=== PATIENT | female | born 1970 | race Asian ===

== ENCOUNTER 2025-05-30 08:15 | Outpatient (AMB) | payer OTHER, SELFPAY ==
--- OUTSIDE RECORDS SUMMARY | 2025-05-30 08:18 | XMS_ITS | Encounter Summary ---
Author Organization [facility] Address [address] [place] [address] Care Team Providers Care Wrinkle Chaser Name Role Phone Bryanna Condon MD Primary Care Provider Encounter Details Date Type Department Care Team ([facility] st Contact Info) Description 05/09/2025 Results Follow-Up Adult Medicine - [place] [address] [place] [id number] Bryanna Condon MD [address] [place] [address] Social History Tobacco Use Types Packs/Day Years Used Date Smoking Tobacco: Never Smokeless Tobacco: Never Alcohol Use Standard Drinks/Week Comments Yes 2 (1 standard drink = 0.6 oz pur e alcohol) Housing Instability Answer Date Recorde d Are you worried that in the next 2 months you may not have stable housing? No 01/10/2025 Food Access & Nutrition Answer Date Rec orded Do you have access to a vari ety of food including fruits and vegetables? Yes 01/10/2025 Access to Healthcare Answer Date Record ed Within the last 3 months, ho w many times did you visit the emergency department for your medical care? 0 01/10/2025 Health Literacy Answer Date Recorded How often do you need to hav e someone help you when you read instructions, pamphlets, or other written material from your doctor or pharmacy? Never 01/10/2025 Caregiver: How often do you need to have someone help you when you read instructions, pamphlets, or other written material from your doctor or pharmacy? Not on file 01/10/2025 Financial Risk Answer Date Recorded How hard is it for you to pa y for the very basics like food, housing, medical care, and air conditioning / heating? Not very hard 01/10/2025 Transportation Answer Date Recorded Has the lack of transportati on kept you from meetings, work, or from getting things needed for daily living? No Has the lack of transportati on kept you from medical appointments or from getting medications? No 01/10/2025 Social Isolation Answer Date Recorded How often do you feel lonely or isolated from th ose around you? Never 01/10/2025 Food Risk Answer Date Recorded Within the past 12 months we worried whether our food would run out before we got money to buy more. Never true 01/10/2025 Within the past 12 months th e food we bought just didn't last and we didn't have money to get more. Never true 01/10/2025 Dependent Care Answer Date Recorded Do you need help finding or paying for care for your loved ones. For example, child and adolescent therapist or elderly care for an older adult? No 01/10/2025 Education Answer Date Recorded Do you think completing more education or training, like finishing a GED, going to college, or learning a trade, would be helpful for you? No 01/10/2025 Employment and Income Answer Date Recor ded During the last four weeks, have you been actively looking for work? No 01/10/2025 Living Situation Answer Date Recorded What is your living situation? Unrecognized valu e 01/10/2025 Comments Unknown Sex and Gender Information Value Date Recorded Sex Assigned at Female 12/08/2024 9:59 PM EDT Legal Sex Female 8:34 AM EST Gender Identity Female 12/08/2024 9:59 PM EDT Sexual Orientation Straight 12/08/2024 9: 59 PM EDT documented as of this encounter Plan of Treatment Upcoming Encounters Date Type Department Care Team (Late st Contact Info) Description 09/12/2025 8:30 AM EDT Office Visit Adult Medicine - [place] [address] [place] [address] Bryanna Condon MD [address] [place] [address] documented as of this encounter Visit Diagnoses Not on filedocumented in this encounter Additional Health Concerns Assessment Noted Time PHQ-9 Depression Total Score: 0 01/11/20 25 9:53 AM EDT documented as of this encounter Care Teams Wrinkle Chaser Relationship Specialty Start Date End Date Bryanna Condon MD [address] [place] [address] PCP - General Internal Medicine 10/09/21 documented as of this encounter
--- OUTSIDE RECORDS SUMMARY | 2025-05-30 08:18 | XMS_ITS | Clinical Summary ---
Author Organization [facility] [address] [place] [address] [place] [address] Phone Care Team Providers Care Jack Tamp Operator Name Role Phone Bryanna Condon MD Primary Care Provider Allergies Active Allergy Reactions Criticality Noted Date Comments Lisinopril Cough Medium 03/20/2019 Medications hydroCHLOROthiaz jo-ann (MICROZIDE) 12.5 mg capsule Take 1 capsule (12.5 mg total) by mouth 1 (one) time each day. 4 Active meclizine (ANTIVERT) 12.5 mg tablet Take 1 Tablet by mouth every 8 hours as needed for Other (vertigo). 4 Active losartan (COZAAR) 25 mg tabletIndication s:Essential (primary) hypertension,Hyp othyroidism, unspecified TAKE 1 TABLET BY MOUTH EVERY DAY 90 tablet 1 5 Active hydrOXYzine HCL (ATARAX) 10 mg tablet Take 1 tablet (10 mg total) by mouth 1 (one) time each day if needed for anxiety (insomnia) for up to 10 days. 10 tablet 5 Active levothyroxine (SYNTHROID, LEVOTHROID) 100 mcg tabletIndication s:Hypothyroidism , unspecified TAKE 1 TABLET BY MOUTH EVERY DAY 90 tablet 5 Active metFORMIN XR (GLUCOPHAGE-XR) 500 mg 24 hr tablet TAKE 2 TABLETS (1,000 MG TOTAL) BY MOUTH 1 (ONE) TIME EACH DAY. DO NOT CRUSH, CHEW, OR SPLIT. 180 tablet 5 Active cimetidine (TAGAMET) 400 mg tablet Take 1 tablet (400 mg total) by mouth at bedtime. 90 tablet 1 5 Active fexofenadine (KYARA) 180 mg tablet Take 1 tablet (180 mg total) by mouth 1 (one) time each day. 90 tablet 1 5 Active cyanocobalamin (Vitamin B-12) 500 mcg tablet Take 1 tablet (500 mcg total) by mouth 1 (one) time each day. 90 tablet 3 5 Active blood-glucose meter kit 1 Kit by Does not apply route See Admin Instructions . 05/09/20 Discontinu ed(Therapy completed) cimetidine (TAGAMET) 400 mg tablet Take 1 tablet (400 mg total) by mouth 2 (two) times a day. 05/09/20 Discontinu ed(Reorder ) fexofenadine (KYARA) 180 mg tablet Take 1 tablet (180 mg total) by mouth 1 (one) time each day. 05/09/20 Discontinu ed(Reorder ) Active Problems Problem Noted Date Diagnosed Date Type 2 diabetes mellitus wit hout complication, without long-term current use of insulin ([facility] V24, [facility] V28) 08/10/2024 Vitamin D deficiency disease 08/03/2020 Overview (05/31/2024): Resolved 11-->53 after vit D supplementation Urge incontinence 06/06/2020 Overview (05/31/2024): Referral to urology Recurrent urticaria 05/04/2019 Hyperlipidemia 03/20/2019 Obesity (BMI 30.0-34.9) 03/20/2019 Acquired hypothyroidism 03/02/2019 Essential hypertension 03/02/2019 Migraine 03/02/2019 Encounters Date Type Department Care Team Description 05/09/2025 9:10 AM EST Lab Draw Station - [address] [phone] Type 2 diabetes mellitus without complication, without long-term current use of insulin ([facility] V24, [facility] V28); Acquired hypothyroidism; Essential hypertension 05/09/2025 8:30 AM EST [facility] [address] [place] [phone] Bryanna Condon MD Type 2 diabetes mellitus without complication, without long-term current use of insulin ([facility] V24, [facility] V28) (Primary Dx); Acquired hypothyroidism; Essential hypertension; Seasonal allergies; Vegan diet 05/09/2025 Results Follow-Up Adult [facility] [address] [place] [phone] Bryanna Condon MD from Last 3 Months Immunizations Immunization Administration Dates Next Due Influenza Quadravalent, MDCK , 0.5ml, preservative free (Flucelvax) 6mo and older 06/23/2023,05/02/2019 Influenza trivalent, 0.5mL, preservative free (Fluarix; FluLaval; Fluzone) ages 6mo and older (Afluria) 3 years and older 04/07/2024 Influenza trivalent, MDCK, 0 .5mL, preservative free (Flucelvax) 6mo and older 05/09/2025 Moderna SARS-CoV-2 COVID-19, mRNA, LNP-S, preservative free 10/21/2020,09/23/2020 Pfizer SARS-CoV-2 COVID-19, mRNA, LNP-S, preservative free 05/30/2021 Tdap Tetanus diptheria acell ular pertussis (Boostrix; Adacel) 7yo and older 10/14/2018 Surgical History Surgery Date Site/Laterality Comments OTHER SURGICAL HISTORY PROCEDURE: ANESTHESIA FOR SECTION; COMMENT: x 2 Medical History Medical History Date Comments Acquired hypothyroidism 03/02/2019 DX:Acqui red hypothyroidism Essential hypertension 03/02/2019 DX:Essent ial hypertension Migraine 03/02/2019 DX:Migraine Family History Medical History Relation Name Comments Diabetes Brother 1 Hyperlipidemia Brother 1 Hypertension Brother 1 Diabetes Brother 2 Hypertension Brother 2 Diabetes Father HTN Stroke Father from covid complications. Asthma Mother and thyroid dis ease Diabetes Mother Breast cancer Neg Hx Colon cancer Neg Hx Relation Name Status Comments Brother 1 Alive Brother 2 Alive Father Mother Alive Social History Tobacco Use Types Packs/Day Years [...] for your loved ones. For example, child care coordinator or elderly care for an older adult? [...] Orientation Straight 12/08/2024 9: 59 PM EDT Obstetrics History Para Term AB IAB SAB Ectopic Multiple Livin g Live Births 2 2 2 2 Date Outcome GA Total Labor Labor/2nd/3rd Weight Sex Type Anes PTL Pooja A1 A5 Name Clin Term Term Last Filed Vital Signs Vital Sign Reading Time Taken Comments Blood Pressure 124/69 05/09/2025 8:24 AM EST Pulse 75 05/09/2025 8:24 AM EST Temperature 36.1 C (97 F) 05/09/2025 8:24 AM EST Respiratory Rate 16 05/09/2025 8:24 AM EST Oxygen Saturation - - Inhaled Oxygen Concentration - - Weight 76.8 kg (169 lb 6.4 oz) 05/09/2025 8:24 A M EST Height 166 cm (5' 5.35 ) 05/09/2025 8:24 AM EST Body Mass Index 27.89 05/09/2025 8:24 AM EST Plan of Treatment Upcoming Encounters Date Type Department Care Team (Late st Contact Info) Description 09/12/2025 8:30 AM EDT Office Visit Adult Medicine - [address] [phone] Bryanna Condon MD [address] [place] [address] Health Maintenance Due Date Last Done Comments Diabetes: Annual Foot Exam 1979 Hepatitis B Vaccines (1 of 3 - 19+ 3-dose series) 1988 Pneumococcal Vaccine: 50+ Years (1 of 2 - PCV) 1988 Zoster Vaccines (1 of 2) 2019 HIV Screening 06/07/2022 COVID-19 Vaccine ( season) 2025 05/30/2021, 10/21/2020, 09/23/2020 Diabetes: Annual Retina Eye Exam 05/12/2025 05/12/2024 Diabetes: Blood Sugar Control Test (HGBA1C) 11/06/2025 05/09/2025, 01/10/2025, 04/07/2024, Additional history exists Diabetes: Annual Urine Albumin-Creatinine Ratio (uACR) 01/10/2026 01/10/2025, 11/26/2023 Social Influencers of Health Screening 01/10/2026 01/10/2025 Diabetes: Annual GFR (Glomerular Filtration Rate) 05/09/2026 05/09/2025, 01/10/2025, 04/07/2024, Additional history exists Hypertension/CHF/CAD Annual BMP Blood Test 05/09/2026 05/09/2025, 01/10/2025, 04/07/2024, Additional history exists Breast Cancer Screening 09/10/2026 09/11/19, 08/08/2023, 08/08/2023, Additional history exists DTaP,Tdap,and Td Vaccines (2 - Td or Tdap) 10/14/2028 10/14/2018 Cervical Cancer Screening: HPV 04/07/2029 04/07/2024 Cholesterol Screening (Lipid Panel) 01/10/2030 01/10/2025, 11/26/2023, 12/19/2021 Colorectal Cancer Screening: Colonoscopy 11/21/2030 11/21/2020 Osteoporosis Screening (Bone Density Screening) 08/10/2034 08/10/2024 RSV Immunization Adult Patients (1 - 1-dose 75+ series) 2044 Hepatitis C Screening Completed 02/18/2023 Depression Screening Completed 01/10/2025, 12/28/19 24 Influenza Vaccine Completed 05/09/2025, , 06/23/2023, Additional history exists HIB Vaccines Aged Out No longer eligi ble based on patient's age to complete this topic HPV Vaccines Aged Out No longer eligi ble based on patient's age to complete this topic Hepatitis A Vaccines Aged Out No long er eligible based on patient's age to complete this topic IPV Vaccines Aged Out No longer eligi ble based on patient's age to complete this topic MMR Vaccines Aged Out No longer eligi ble based on patient's age to complete this topic Meningococcal ACWY Vaccine Aged Out N o longer eligible based on patient's age to complete this topic Meningococcal B Vaccine Aged Out No l onger eligible based on patient's age to complete this topic RSV Immunization Patients Under 20 months Aged Out No longer eligible based on patient's age to complete this topic Varicella Vaccines Aged Out No longer eligible based on patient's age to complete this topic Procedures Procedure Name Priority Date/Time Associated Diagnosis Comments COMPREHENSIVE METABOLIC PANEL Routine 05/09/2025 9:10 AM EST Type 2 diabetes mellitus without complication, without long-term current use of insulin (CMS/HCC V24, CMS/HCC V28) Acquired hypothyroidism Essential hypertension HEMOGLOBIN A1C Routine 05/09/2025 9:10 AM EST Type 2 diabetes mellitus without complication, without long-term current use of insulin (CMS/HCC V24, CMS/HCC V28) Acquired hypothyroidism Essential hypertension MICROALBUMIN CREATININE URINE RATIO Routine 01/10/2025 12:46 PM EDT Type 2 diabetes mellitus without complication, without long-term current use of insulin (CMS/HCC V24, CMS/HCC V28) Essential hypertension Acquired hypothyroidism Vestibular neuronitis, unspecified laterality Heartburn LIPID PANEL WITH REFLEX TO DIRECT LDL Routine 01/10/2025 12:46 PM EDT Type 2 diabetes mellitus without complication, without long-term current use of insulin (CMS/HCC V24, CMS/HCC V28) Essential hypertension Acquired hypothyroidism Vestibular neuronitis, unspecified laterality Heartburn MG MAMMO DIGITAL SCREENING W KD BILAT Routine 09/10/2024 8:26 AM EDT Encounter for screening mammogram for breast cancer BD BONE DENSITY DXA AXIAL SKELETON Routine 08/10/2024 11:01 AM EST Encounter for general adult medical examination without abnormal findings HM HPV Routine 04/07/2024 DEPRESSION SCREENING Routine 12/28/2023 HEPATITIS C SCREENING Routine 02/18/2023 HM COLONOSCOPY Routine 11/21/2020 from Last 3 Months or Most Recently Relevant to Health Maintenance Results * (ABNORMAL) Hemoglobin A1c (05/09/2025 9:10 AM EST) Pathologist [facility] [place] Hemoglobin A1C 6.9(H) <6.5 % LAB CHEMISTRY METHOD 05/09/2025 7:27 PM EST [facility] Mean Bld Glu Estim. 151 mg/dL LAB CHEMISTRY METHOD 05/09/2025 7:27 PM [facility] Blood Venous blood specimen / Unknown Venipuncture / Unknown 05/09/2025 9:10 AM EST 05/09/2025 9:10 AM EST us Bryanna Condon MD LAB BLOOD ORDERABLES F inal Result [facility] [address] [place] [address], [place] [phone] * (ABNORMAL) Comprehensive metabolic panel (05/09/2025 9:10 AM EST) [facility] Sodium 139 133 - 145 mmol/L LAB CHEMISTRY METHOD 05/09/2025 12:38 PM [facility] Potassium 4.0 3.5 - 5.5 mmol/L LAB CHEMISTRY METHOD 05/09/2025 12:38 PM [facility] Chloride 103 96 - 110 mmol/L LAB CHEMISTRY METHOD 05/09/2025 12:38 PM [facility] CO2 29 21 - 32 mmol/L LAB CHEMISTRY METHOD 05/09/2025 12:38 PM [facility] Anion Gap 7 3 - 11 LAB CHEMISTRY METHOD 05/09/2025 12:38 PM [facility] Glucose 132(H) 70 - 100 mg/dL LAB CHEMISTRY METHOD 05/09/2025 12:38 PM [facility] BUN 8 5 - 25 mg/dL LAB CHEMISTRY METHOD 05/09/2025 12:38 PM [facility] Creatinine 0.67 0.50 - 1.10 mg/dL LAB CHEMISTRY METHOD 05/09/2025 12:38 PM [facility] eGFR 103 >=60 mL/min/1. 73m2 LAB CHEMISTRY METHOD 05/09/2025 12:38 PM [facility] Comment:Calculation based on the Chronic Kidney Disease Epidemiology Collaboration (CKD-EPI) equation refit without adjustment for race. BUN/Creatinine Ratio 11.9 LAB CHEMISTRY METHOD 05/09/2025 12:38 PM [facility] Calcium 9.1 8.5 - 10.5 mg/dL LAB CHEMISTRY METHOD 05/09/2025 12:38 PM [facility] AST (SGOT) 25 10 - 42 unit/L LAB CHEMISTRY METHOD 05/09/2025 12:38 PM [facility] ALT (SGPT) 37 10 - 60 unit/L LAB CHEMISTRY METHOD 05/09/2025 12:38 PM [facility] Alkaline Phosphatase 130(H) 42 - 121 unit/L LAB CHEMISTRY METHOD 05/09/2025 12:38 PM [facility] Total Protein 7.7 6.0 - 8.0 g/dL LAB CHEMISTRY METHOD 05/09/2025 12:38 PM [facility] Albumin 3.7 3.2 - 5.0 g/dL LAB CHEMISTRY METHOD 05/09/2025 12:38 PM [facility] Total Bilirubin 0.3 0.0 - 1.4 mg/dL LAB CHEMISTRY METHOD 05/09/2025 12:38 PM [facility] Blood Venous blood specimen / Unknown Venipuncture / Unknown 05/09/2025 9:10 AM EST 05/09/2025 9:10 AM EST us Bryanna Condon MD LAB BLOOD ORDERABLES F inal Result [facility] [address] [place] [address], [place] [phone] * Lipid panel with reflex to direct LDL (01/10/2025 12:46 PM EDT) Cholesterol 174 0 - 200 mg/dL LAB CHEMISTRY METHOD 01/10/2025 3:59 PM EDT [facility] Triglycerides 102 0 - 150 mg/dL LAB CHEMISTRY METHOD 01/10/2025 3:59 PM EDT [facility] HDL 56 >=40 mg/dL LAB CHEMISTRY METHOD 01/10/2025 3:59 PM EDT [facility] LDL Calculated 98 0 - 100 mg/dL LAB CHEMISTRY METHOD 01/10/2025 3:59 PM EDT [facility] VLDL Cholesterol Noah 20.4 mg/dL LAB CHEMISTRY METHOD 01/10/2025 3:59 PM EDT [facility] Non HDL Chol. (LDL+VLDL) 118 <145 mg/dL LAB CHEMISTRY METHOD 01/10/2025 3:59 PM EDT [facility] Chol/HDL Ratio 3.1 0.0 - 4.4 LAB CHEMISTRY METHOD 01/10/2025 3:59 PM EDT [facility] Blood Venous blood specimen / Unknown Venipuncture / Unknown 01/10/2025 12:46 PM EDT 01/10/2025 12:46 PM EDT us Alonzo ARRIAGA LAB BLOOD ORDERABLES Final Re sult [facility] [address] [place] [address], [place] [phone] * (ABNORMAL) Microalbumin creatinine urine ratio (01/10/2025 12:46 PM EDT) Creatinine, Urine 20.0 mg/dL LAB CHEMISTRY METHOD 01/10/2025 4:09 PM EDT [facility] Microalb, Ur 5.9 0.0 - 29.0 mg/L LAB CHEMISTRY METHOD 01/10/2025 4:09 PM EDT [facility] Microalb/Creat Ratio 30(H) <30 mg/g creat LAB CHEMISTRY METHOD 01/10/2025 4:09 PM EDT [facility] Urine Urine specimen obtained by clean catch procedure / Unknown Non-blood Collection / Unknown 01/10/2025 12:46 PM EDT 01/10/2025 12:46 PM EDT us Alonzo ARRIAGA LAB URINE ORDERABLES Final Re sult [facility] [address] [place] [address], [place] [phone] * MG Mammo Digital Screening w Kd bilat (09/10/2024 8:26 AM EDT) Anatomical Region Laterality Modality Breast Bilateral Mammography 09/12/2024 1:05 PM EDT Impressions 09/12/2024 1:25 PM EDT No mammographic evidence of malignancy. BREAST DENSITY: B - There are scattered areas of fibroglandular density. BI-RADS CATEGORY: 1 - NEGATIVE RECOMMENDATION: Screening bilateral mammogram is recommended in 1 year. MAMMO LOCATION: [facility], [address] [place] [address], [phone], . -------- FINAL REPORT -------- Dictated By: Taya Martinez Dictated Date: 09/12/2024 13:05 ET Assigned Physician: Taay Martinez Reviewed and Electronically Signed By: Taya Martinez Signed Date: 09/12/2024 13:25 ET Workstation ID: [id number] Transcribed By: Self Edit Transcribed Date: 09/12/2024 13:05 ET Narrative 09/12/2024 1:25 PM EDT EXAM: Screening Mammogram CLINICAL: 54 years old, Female, routine annual exam. COMPARISON: 08/08/2023 and 07/22/2022 TECHNIQUE: Bilateral MLO and CC views were obtained digitally with 3-D mammogram (digital breast tomosynthesis). Computer-aided detection was utilized in evaluation of this exam (CAD). FINDINGS: No new suspicious mass, architectural distortion, or suspicious calcifications. Procedure Note Taya Martinez MD - 09/12/2024 EXAM: Screening Mammogram CLINICAL: 54 years old, Female, routine annual exam. COMPARISON: 08/08/2023 and 07/22/2022 TECHNIQUE: Bilateral MLO and CC views were obtained digitally with 3-Dmammogram (digital breast tomosynthesis). Computer-aided detection wasutilized in evaluation of this exam (CAD). FINDINGS: No new suspicious mass, architectural distortion, or suspiciouscalcifications. IMPRESSION: No mammographic evidence of malignancy. BREAST DENSITY: B - There are scattered areas of fibroglandular density. BI-RADS CATEGORY: 1 - NEGATIVE RECOMMENDATION: Screening bilateral mammogram is recommended in 1 year. MAMMO LOCATION: [facility], [address] [place] [address], [address], . -------- FINAL REPORT -------- Dictated By: Taya Martinez Dictated Date: 09/12/2024 13:05 ET Assigned Physician: Taya Martinez Reviewed and Electronically Signed By: Taya Martinez Signed Date: 09/12/2024 13:25 ET Workstation ID: [id number] Transcribed By: Self Edit Transcribed Date: 09/12/2024 13:05 ET us Bryanna Condon MD IMG BI PROCEDURES Danna l Result * BD Bone Density DXA Axial Skeleton (08/10/2024 11:01 AM EST) Anatomical Region Laterality Modality Wrist, Hip, L-spine Bone Densito metry 08/10/2024 12:3 0 PM EST Impressions 08/10/2024 12:37 PM EST Impression:Osteopenia by WHO criteria. This patient has a 6.5% risk of major osteoporotic fracture and a 0.5% risk of hip fracture over the next 10 years. (World Health Organization Fracture Risk Assessment) [facility] Department of Internal Medicine recommends using National Osteoporosis Foundation (NOF) guidelines in treatment decisions related to osteoporosis. NOF guidelines suggest considering treatment for postmenopausal women and men aged 50 or older presenting with the following: History of hip or vertebral fracture. T-score = -2.5 (DXA) at the femoral neck, total hip, or spine, after appropriate evaluation to exclude secondary causes. Low bone mass (T-score between -1.0 and -2.5 at the femoral neck or spine) AND a 10-year probability of a hip fracture = 3% OR a 10-year probability of a major osteoporosis-related fracture = 20% based on the [place]-adapted WHO algorithm Please note that all treatment decisions require clinical judgment and consideration of individual patient factors, including patient preferences, co-morbidities, previous drug use, risk factors not captured in the FRAX model (e.g., frailty, falls, vitamin D deficiency, increased bone turnover, interval significant decline in bone density) and possible under- or over-estimation of fracture risk by FRAX. Optional alternative screening schedule based on lewis Buckner., [facility] July 17, 2011 for patients with osteopenia (based on hip BMD T-score) is as follows: * advanced osteopenia (T scores -2.00 to -2.49), BMD testing every year * moderate osteopenia (T scores -1.50 to -1.99), BMD testing every 5 years mild osteopenia or normal BMD (T scores -1.50 and higher), BMD testing every 15 years -------- FINAL REPORT -------- Dictated By: Marita King Dictated Date: 08/10/2024 12:30 ET Assigned Physician: Marita King Reviewed and Electronically Signed By: Marita King Signed Date: 08/10/2024 12:37 ET Workstation ID: [id number] Transcribed By: Self Edit Transcribed Date: 08/10/2024 12:30 ET Narrative 08/10/2024 12:37 PM EST BONE DENSITY (DEXA) Lumbar Spine T-score is -1.2. (SD relative to 20-29 y/o adult) Z-score is -0.1. (SD relative to age matched peers) This is considered osteopenia by WHO criteria. Left Hip T-score is -1.6. Z-score is -0.5. This is considered osteopenia by WHO criteria. Comparison exam(s): Not available. Procedure Note Marita King MD - 08/10/2024 BONE DENSITY (DEXA) Lumbar Spine T-score is -1.2. (SD relative to 20-29 y/o adult) Z-score is -0.1. (SD relative to age matched peers) This is considered osteopenia by WHO criteria. Left Hip T-score is -1.6. Z-score is -0.5. This is considered osteopenia by WHO criteria. Comparison exam(s): Not available. IMPRESSION: Impression:Osteopenia by WHO criteria. This patient has a 6.5% risk ofmajor osteoporotic fracture and a 0.5% risk of hip fracture over the next10 years. (World Health Organization Fracture Risk Assessment) [facility] Department of Internal Medicine recommendsusing National Osteoporosis Foundation (NOF) guidelines in treatmentdecisions related to osteoporosis. NOF guidelines suggest consideringtreatment for postmenopausal women and men aged 50 or older presentingwith the following: History of hip or vertebral fracture. T-score = -2.5 (DXA) at the femoral neck, total hip, or spine, afterappropriate evaluation to exclude secondary causes. Low bone mass (T-score between -1.0 and -2.5 at the femoral neck or spine)AND a 10-year probability of a hip fracture = 3% OR a 10-year probabilityof a major osteoporosis-related fracture = 20% based on the [place]-adapted WHOalgorithm Please note that all treatment decisions require clinical judgment andconsideration of individual patient factors, including patientpreferences, co-morbidities, previous drug use, risk factors not capturedin the FRAX model (e.g., frailty, falls, vitamin D deficiency, increasedbone turnover, interval significant decline in bone density) and possibleunder- or over-estimation of fracture risk by FRAX. Optional alternative screening schedule based on lewis Buckner., NEJMJanuary 2011 for patients with osteopenia (based on hip BMD T-score)is as follows: * advanced osteopenia (T scores -2.00 to -2.49), BMD testing every year * moderate osteopenia (T scores -1.50 to -1.99), BMD testing every 5years mild osteopenia or normal BMD (T scores -1.50 and higher), BMD testingevery 15 years -------- FINAL REPORT -------- Dictated By: Marita King Dictated Date: 08/10/2024 12:30 ET Assigned Physician: Marita King Reviewed and Electronically Signed By: Marita King Signed Date: 08/10/2024 12:37 ET Workstation ID: [id number] Transcribed By: Self Edit Transcribed Date: 08/10/2024 12:30 ET Carrie Gan CNM IM DXA PROCEDURES Final Resu lt * Cervical Cancer Screening: HPV (04/07/2024) [facility] Cervical Cancer Screening: HPV negative, abstracted [facility] Provider HEALTH MAINTENANCE Final Result * Depression Screening (12/28/2023) [facility] Depression Screening abstracted [facility] Provider HEALTH MAINTENANCE Final Result * Hepatitis C Screening (02/18/2023) [facility] Hepatitis C Screening abstracted [facility] Provider HEALTH MAINTENANCE Final Result * Colonoscopy (11/21/2020) [facility] Colonoscopy no interpretation , abstracted Anatomical Region Laterality Modality Other [facility] Provider HEALTH MAINTENANCE Final Result from Last 3 Months or Most Recently Relevant to Health Maintenance [place] [address] Care Teams Jack Tamp Operator Relationship Specialty Start Date End Date Bryanna Condon MD [address] [place] [phone] PCP - General Internal Medicine 10/09/21
--- NOTE | 2025-05-30 08:35 | A.OFFVIS_ITS ---
Intake Visit Reasons: vertigo Allergies No Known Allergies Allergy (Verified 01/03/25 16:39) Medication List - Last Reconciled 05/30/25 by Иван Canseco MD hydrochlorothiazide 12.5 mg PO DAILY hydroxyzine HCl 10 mg PO DAILY PRN levothyroxine 100 mcg PO DAILY losartan 25 mg PO DAILY metformin ER 1,000 mg PO DAILY HPI Comments Details: This is a 55 yr old woman with remote h/o migraines with no recurrence in last year, motion sickness and recurrent vertigo episodes. She is doing much better with only 3 mild attacks lasting 1-2 days in the last 14 months. She took Meclizine 8mg single dose with relief. She originally developed sudden onset of vertigo while in [place] in March 2021. It came on suddenly with violent vertigo, nausea, vomiting, and that went on for a month and she had to delay her return. She is taking Meclizine 8 mg in an formulation. She had no hear ing symptoms of tinnitus or hearing loss. No other complaints including the vision. She had some vestibular rehabilitation and then was fine for a year till late 2021 and then she started having brief attacks lasting a few hours to a day, sometimes 2 days, but once or twice a month. No triggers have been identified. They occur randomly. No hearing loss or tinnitus. These episodes of vertigo are frequently associated with the posterior neck pain and headaches in the biparietal and occipital area. May be triggered under stressful situations. Hearing test normal. Her migraines started in school and used to last days. No recent recurrence. Mother and daughter also have migraines. [facility] Medical History (Updated 05/30/25 @ 09:05 by Иван Canseco MD) Vestibular neuronitis, bilateral Migraine Review of Systems Const Details: Sleep:? Difficulty getting to sleep?denies.? Difficulty maintaining sleep?denies? .? Urge to move legs?denies.? Teeth grinding?denies.? Shouting or Kicking during sleep?denies.? Abnormal behavior during sleep?denies.? Excessive sleep?denies.? Snoring?denies.? Daytime sleepiness?denies.? ?? General/Constitutional:? Change in appetite?denies.? Chills?denies.? Fatigue?denies.? Fever?denies .? Weight gain?denies.? Weight loss?denies.? ?? Ophthalmologic:? Blurred vision?admits.? Diminished visual acuity?denies.? ?? ENT:? Stuffiness?denies.? Decreased hearing?denies.? Dry mouth?denies.? Ear pain?denies.? Nosebleed?denies.? Ringing in the ears?denies.? Sinus pain?denies .? Sore throat?denies.? Swollen glands?denies.? ?? Endocrine:? Cold intolerance?denies.? Excessive thirst?denies.? Frequent urination? denies.? Heat intolerance?denies.? ?? Respiratory:? Shortness of breath?denies.? Chest pain?denies.? Cough?denies.? ?? Breast:? Breast lump?denies.? Nipple discharge?denies.? ?? Cardiovascular:? Chest pain at rest?denies.? Chest pain with exertion?denies.? Cl audication?denies.? Dizziness?denies.? Fluid accumulation in the legs?denies.? Irregular heartbeat?denies.? Palpitations?denies.? ?? Gastrointestinal:? Abdominal pain?denies.? Constipation?denies.? Diarrhea?denies.? Difficulty swallowing?denies.? Heartburn?denies.? Nausea?denies.? Rectal bleeding?denies.? ?? Hematology:? Easy bruising?denies.? Prolonged bleeding?denies.? ?? Genitourinary:? Frequent urination?denies.? Urgency?admits.? Incontinence?denies.? Erectile Dysfunction?denies.? ?? Musculoskeletal:? Neck pain?admits.? Back pain?admits.? Muscle aches?denies.? Painful joints?admits.? Sciatica?denies.? Weakness?denies.? ?? Podiatric:? Difficulty walking?denies.? Foot numbness?denies.? ?? Neurologic:? Difficulty swallowing?denies.? Balance difficulty?denies.? Coordination? normal.? Difficulty speaking?denies.? Dizziness?admits.? Fainting?denies.? Gait abnormality?denies.? Headache?admits.? Loss of strength?denies.? Loss of use of extremity?denies.? Low back pain?denies.? Memory loss?denies.? Seizures?denies.? Tics?denies.? Tingling/Numbness?denies.? Transient loss of vision?denies.? Tremor?denies.? ?? Psychiatric:? Anxiety?denies.? Auditory/visual hallucinations?denies.? Delusions?denies .? Depressed mood?denies.? Stressors?denies.? Substance abuse?denies.? Suicidal thoughts?denies.? ?? Physical Exam Neuro Other: Neurological: ? Abnormal neurological findings:??none.? Mental Status:?alert and oriented X 3,?Normal attention, orientation, memory and affect.? Cranial Nerves:?Pupils are equal, round and reactive to light. Fundoscopy shows normal disc bilaterally. External occular muscles are intact. Visual ross are full, no ptosis. Face is symmetrical, no facial weakness or droop. Facial sensations are normal. Tongue protrudes in midline. Palate elevates symmetrically. Shoulder shrugging is normal..? Motor Examination:?Normal muscle tone, bulk and strength,?No atrophy or fasciculations,?No drift of the extended upper extremities,?Deep tendon reflexes are 2+?,?Plantars are flexor?.? Straight Leg Raising:?90 degrees.? Sensory Exam:?Normal light touch, temperature, pinprick, vibration and joint-position sensations?,?Rhomberg sign is absent.? Coordination:?no ataxia,?no titubation,?[id number], [id number] test and rapid alternating movements were normal.? Gait Exam:?Within normal limits.? Cerebellar Signs:?[id number] and [id number] is normal,?no dysdia dochokinesia?.? Extrapyramidal System:?No tremor, rigidity with normal facial expressions,?No bradykinesia, no bradyphrenia. Normal arm swing and posture. No propulsion or retropulsion.? Speech:?Normal,?no dysphasia or dysarthria..? Mini Mental Status Exam: ? Level of Consciousness:?Alert.? Orientation:?Knows correct year, month, date, day and season,?Knows correct city, county and state. Knows correct location and floor.? Registration:?Able to register 3 objects.? Attention:?Serial 7's performed accurately.? Recall:?Able to recall 3 out of 3 objects.? Language:?Normal spontaneous speech, fluency, repetition,naming, comprehension, reading and writing.? Total Score:?30/30.? General Examination: ? GENERAL APPEARANCE:?normal,?in no acute distress.? HEAD:?normocephalic,?atraumatic.? EYES:?sclera non-icteric,?conjunctiva clear.? EARS:?auditory canal clear,?tympanic membrane intact, clear.? NOSE:?no lesions.? ORAL CAVITY:?gums normal,?mucosa moist,?no lesions.? THROAT:?clear.? NECK/THYROID:?no cervical lymphadenopathy,?thyroid normal,?neck supple, full range of motion,?no carotid bruit.? SKIN:?no rashes,?no significant birthmarks.? HEART:?S1, S2 normal,?no murmurs.? LUNGS:?clear anteriorly and posteriorly.? CHEST:?no gross rib deformity,?clear to auscultation.? BACK:?normal exam of spine.? EXTREMITIES:?no edema.? PERIPHERAL PULSES:?normal.? PSYCH:?alert, oriented,?cognitive function intact,?cooperative with exam.? Assessment & Plan Assessment & Plan (1) Vestibular neuronitis, bilateral: Comment: It is unclear if these are episodes of recurrent vestibular neuronitis or a vestibular migraine. Her typical migraines that she had in her teenage years for 20 years have not recurred in the last 10 years. Code(s): H81.23 - Vestibular neuronitis, bilateral Category: Medical (2) Migraine: Comment: No recurrence in last year Code(s): G43.909 - Migraine, unspecified, not intractable, without status migrainosus Category: Medical Plan Continue HCTZ 12.5 mg qd and Meclizine 8mg prn Medications: Changed From hydrochlorothiazide 12.5 mg PO DAILY 90 tabs 1RF To hydrochlorothiazide 12.5 mg PO DAILY 90 tabs 3RF 90 days Coding Level of Care Code Est Pt Level 4 (36758) Diagnoses Vestibular neuronitis, bilateral H81.23 Migraine G43.909
== END 2025-05-30 09:03 | disposition home or self-care (01) ==
LOC: HO.HSM 08:15
PROVIDERS: PCP Family Medicine; Visit Provider Psychiatry & Neurology Neurology
DX: H81.23 Vestibular neuronitis, bilateral (principal); G43.909 Migraine, unspecified, not intractable, without status migrainosus
CPT/HCPCS: 99214

== ENCOUNTER → 2025-05-30 08:15 | Outpatient (BNVA) | payer OTHER, SELFPAY | PROVIDERS: PCP Family Medicine; Visit Provider Psychiatry & Neurology Neurology | DX: H81.23 Vestibular neuronitis, bilateral (principal); G43.909 Migraine, unspecified, not intractable, without status migrainosus | CPT/HCPCS: 99212 ==